=== PATIENT | male | born 1965 | race Hispanic/Latino ===

== ENCOUNTER 2022-02-13 15:50 | Inpatient (IN) | payer SELFPAY ==
[2022-02-13] MEDS ORDERED: Bupivacaine PF 0.5% 30 ML VIAL ONE (17:05)
[2022-02-13] MEDS ORDERED: Bupivacaine HCl 0.5%/Epinephrine 1:200,000/PF 30 ml Vial ONE (17:06)
[2022-02-13] MEDS ORDERED: Lidocaine 1% PF 5 ML VIAL ONE (17:21)
[2022-02-13] MEDS ORDERED: Midazolam HCl 2 mg/2 ml Vial ONE (17:22)
[2022-02-13] MEDS ORDERED: Ketamine 50 MG/ML (10ML VIAL) ONE (17:22)
[2022-02-13] MEDS ORDERED: Famotidine/PF 20 mg/2ml Vial ONE (17:22)
[2022-02-13] MEDS ORDERED: fentaNYL Citrate/PF 100 MCG/2 ML SYRINGE ONE (17:22)
[2022-02-13] MEDS ORDERED: Ketorolac Tromethamine 30 MG/ML VIAL ONE (17:30)
[2022-02-13] MEDS ORDERED: Phenylephrine 10 MG/ML VIAL ONE (17:30)
[2022-02-13] MEDS ORDERED: Rocuronium Bromide 10 MG/ML (10ML VIAL) ONE (17:30)
[2022-02-13] MEDS ORDERED: Dexamethasone 20 MG/5 ML VIAL ONE (17:30)
[2022-02-13] MEDS ORDERED: Lidocaine 1% MPF 2 ML VIAL ONE (17:30)
[2022-02-13] MEDS ORDERED: NEOSTIGMINE 3 MG/3 ML SYR 3 MG/3 ML SYRINGE ONE (17:30)
[2022-02-13] MEDS ORDERED: Succinylcholine 200 MG/10 ml SYRINGE FS ONE (17:30)
[2022-02-13] MEDS ORDERED: PROPOFOL 200 MG/20 ML VIAL ONE (17:30)
[2022-02-13] MEDS ORDERED: Ondansetron PF 4 MG/2 ML Vial ONE (17:30)
[2022-02-13] MEDS ORDERED: Glycopyrrolate 0.2 MG/ML 5 ML SYRINGE ONE (17:30)
[2022-02-13] MEDS ORDERED: Promethazine HCl 25 MG/ML VIAL IVPB PRN (18:01)
[2022-02-13] MEDS ORDERED: HYDROmorphone 2 MG/ML VIAL SLOW IVP PRN (18:01)
[2022-02-13] MEDS ORDERED: Ondansetron HCl/PF 4 MG/2 ML Vial IVP PRN (18:01)
[2022-02-13] MEDS ORDERED: Promethazine HCl 25 MG/ML VIAL IM PRN (18:01)
[2022-02-13] MEDS ORDERED: Insulin Regular 300 UNITS/3 ML VIAL ONE (18:11)
[2022-02-13 20:51] LABS: Hemoglobin A1c 11.7 % (4.0-6.0)
[2022-02-13] MEDS ORDERED: Dextrose 5% in Water 1,000 ML IV PRN (21:14)
[2022-02-13] MEDS ORDERED: Dextrose 50% Abboject 50 ML SYRINGE SLOW IVP PRN (21:14)
[2022-02-13] MEDS ORDERED: HumaLOG 300 UNITS/3 ML VIAL SC PRN (21:14)
[2022-02-13] MEDS ORDERED: Ondansetron PF 4 MG/2 ML Vial IVP PRN (21:16)
[2022-02-13] MEDS ORDERED: Ondansetron ODT 4 MG TAB PO PRN (21:16)
[2022-02-13 22:16] VITALS: BMI 32.0
[2022-02-14] MEDS: Sodium Chloride 0.9% 1,000 ML IV SCH ×2 (00:03→08:32)
[2022-02-14 06:12] LABS: #Lymphocytes 0.6 thou/uL (1.20-3.40); #Monocytes 0.1 thou/uL (0.11-0.59); #Neutrophils 6.5 thou/uL (1.40-6.50); %Eosinophils 0.1 % (0.0-10.0); %Lymphocytes 8.6 % (21.0-51.0); %Monocytes 1.7 % (0.0-10.0); %Neutrophils 89.6 % (42.0-75.0); Hemoglobin 12.8 g/dL (14.0-18.0); Mean Corpuscular HGB CONC 33.4 g/dL (32.0-36.0); Mean Corpuscular Hemoglobin 31.4 pg (27.0-31.0); Mean Platelet Volume 8.1 fL (7.4-10.4); Platelet Count 230 thou/uL (130-400); RBC Distribution Width 11.7 % (11.5-14.5); Red Blood Cell (RBC) Count 4.09 mill/uL (4.70-6.10); White Blood Cell (WBC) Count 7.3 thou/uL (4.8-10.8)
[2022-02-14 06:32] LABS: ALT (SGPT) 14 U/L (8-55); AST (SGOT) 10 U/L (5-34); Albumin 3.1 g/dL (3.5-5.0); Alkaline Phosphatase 70 U/L (40-110); Anion Gap 14 mmol/L (10-20); BUN (Urea Nitrogen) 21 mg/dL (8.4-25.7); Bilirubin, Total 0.6 mg/dL (0.2-1.2); Calc. Creatinine Clearance 127 mL/min (70-130); Calcium 8.4 mg/dL (7.8-10.44); Carbon Dioxide 20 mmol/L (22-29); Cardiac Risk 3.2 (Less than 4.5); Chloride 106 mmol/L (98-107); Cholesterol 118 mg/dl (< 200 Desired); Estimated GFR 104; Globulin 3.2 g/dL (2.4-3.5); Glucose 268 mg/dL (70-105); HDL Cholesterol 37 mg/dL (>60 Neg Risk); LDL Cholesterol, Calculated 70 mg/dL; Protein, Total 6.3 g/dL (6.0-8.3); Sodium 136 mmol/L (136-145); Triglycerides 54 mg/dL (Less than 150)
[2022-02-14] MEDS: HumaLOG 300 UNITS/3 ML VIAL SC PRN ×3 (06:37→17:32)
[2022-02-14] MEDS ORDERED: Insulin Glargine 30 UNITS/0.3 ML VIAL SC SCH (09:00)
[2022-02-14] MEDS ORDERED: Morphine 2 MG/ML VIAL SLOW IVP PRN (12:11)
[2022-02-14] MEDS: HYDROcodone/Acetaminophen 5/325 mg Tablet PO PRN ×2 (12:31→20:12)
[2022-02-14 16:21] LABS: Free T4 (Free Thyroxine) 1.49 ng/dL (0.70-1.48)
[2022-02-14] MEDS ORDERED: metFORMIN 500 MG TAB PO SCH (20:00)
[2022-02-14] MEDS: Insulin Glargine 30 UNITS/0.3 ML VIAL SC SCH (20:14)
[2022-02-15] MEDS: HYDROcodone/Acetaminophen 5/325 mg Tablet PO PRN ×3 (01:15→16:52)
[2022-02-15] MEDS: HumaLOG 300 UNITS/3 ML VIAL SC PRN ×3 (06:33→17:11)
[2022-02-15 07:00] LABS: #Lymphocytes 2.6 thou/uL (1.20-3.40); #Monocytes 0.8 thou/uL (0.11-0.59); #Neutrophils 5.5 thou/uL (1.40-6.50); %Basophils 0.2 % (0.0-1.0); %Eosinophils 0.5 % (0.0-10.0); %Lymphocytes 29.3 % (21.0-51.0); %Monocytes 8.9 % (0.0-10.0); Hemoglobin 11.6 g/dL (14.0-18.0); Mean Corpuscular Hemoglobin 30.2 pg (27.0-31.0); Mean Corpuscular Volume 94.4 fL (78.0-98.0); Mean Platelet Volume 7.8 fL (7.4-10.4); Platelet Count 261 thou/uL (130-400); RBC Distribution Width 11.6 % (11.5-14.5); Red Blood Cell (RBC) Count 3.84 mill/uL (4.70-6.10)
[2022-02-15 07:17] LABS: Anion Gap 10 mmol/L (10-20); BUN (Urea Nitrogen) 18 mg/dL (8.4-25.7); Calc. Creatinine Clearance 136 mL/min (70-130); Calcium 8.3 mg/dL (7.8-10.44); Carbon Dioxide 24 mmol/L (22-29); Chloride 105 mmol/L (98-107); Estimated GFR 106; Glucose 217 mg/dL (70-105); Potassium 3.6 mmol/L (3.5-5.1); Sodium 135 mmol/L (136-145)
[2022-02-15] MEDS: metFORMIN 500 MG TAB PO SCH ×2 (08:26→16:52)
[2022-02-15] MEDS: Insulin Glargine 30 UNITS/0.3 ML VIAL SC SCH (08:26)
[2022-02-15 17:26] VITALS: BP 135/79; TEMP 97.9
[2022-02-16] MEDS ORDERED: Insulin Glargine 30 UNITS/0.3 ML VIAL SC SCH (09:00)
== END 2022-02-15 17:57 | disposition home or self-care (01) | DRG 339 ==
LOC: T4-A 16:52 → OBSVTOIN 02-14 17:13
PROVIDERS: ADMIT Internal Medicine; ATTEND Family Medicine
PROC: 0DTJ4ZZ Resection of Appendix, Percutaneous Endoscopic Approach (ICD-10-PCS; principal; 2022-02-13)
DX: K35.33 Acute appendicitis with perforation, localized peritonitis, and gangrene, with abscess (principal); E87.1 Hypo-osmolality and hyponatremia; E11.65 Type 2 diabetes mellitus with hyperglycemia; D64.9 Anemia, unspecified; Z79.4 Long term (current) use of insulin; Z79.84 Long term (current) use of oral hypoglycemic drugs; Z79.899 Other long term (current) drug therapy
CPT/HCPCS: 36415; 36416; 80048; 80053; 80061; 83036; 84439; 84443; 84481; 85025; 88304; 96360; 96361; A4649; G0378; J1100; J1815; J1885; J2250; J2370; J2405; J2704; J7050; S0020; S0028